=== PATIENT | female | born 1965 | race Caucasian/White ===

== ENCOUNTER 2018-06-16 16:44 | Emergency (ER) | payer SELFPAY ==
--- NOTE | 2018-06-16 18:35 | EDPHYS ---
Physician Documentation [facility] Name: Harleen Monroy Age: 52 yrs Sex: Female : 1965 Arrival Date: 06/16/2018 Time: 16:50 Bed 10 Private MD: ED Physician Eloy Garcia HPI: 06/16 18:25 This 52 yrs old Female presents to ER via Ambulatory with complaints of jmm ITCHING. 18:25 The patient's rash thought to be caused by an unknown cause. The rash is located on the jmm back and left arm. Onset: The symptoms/episode began/occurred gradually. This is a 52 year old female with a history of hypothyroidism that presents to the ED with complaints of rash to the left axillary region and left shoulder. Patient states symptoms are not relieved with OTC medication. Denies fever, vomiting, swelling of the throat, denies abdominal pain. . Historical: - Allergies: 17:05 No Known Allergies; ph - PMHx: 17:05 "Chronic night sweats"; Hypothyroidism; ph - PSHx: 17:05 Tonsillectomy; Ovarian cyst removed; D \\T\\ C; ph - Immunization history:: Adult Immunizations up to date. - Social history:: Smoking status: Patient/guardian denies using tobacco. - Ebola Screening: : No symptoms or risks identified at this time. ROS: 18:25 Constitutional: Negative for fever, chills, and weight loss, Cardiovascular: Negative jmm for chest pain, palpitations, and edema, Respiratory: Negative for shortness of breath, cough, wheezing, and pleuritic chest pain. 18:25 Skin: Positive for rash. 18:25 All other systems are negative. Exam: 18:25 Constitutional: This is a well developed, well nourished patient who is awake, alert, jmm and in no acute distress. Head/Face: atraumatic. Eyes: EOMI, no conjunctival erythema appreciated ENT: Moist Mucus Membranes Neck: Trachea midline, Supple Chest/axilla: Normal chest wall appearance and motion. Cardiovascular: Regular rate and rhythm. No edema appreciated Respiratory: Normal respirations, no respiratory distress appreciated Abdomen/GI: Non distended, soft Back: Normal ROM 18:31 Skin: mild erythema noted to the left axillary region and the left posterior shoulder. jmm 18:31 MS/ Extremity: Moves all extremities, no obvious deformities appreciated, no edema aimee noted to the lower extremities Neuro: Awake and alert, normal gait Psych: Behavior is normal, Mood is normal, Patient is cooperative and pleasant Vital Signs: 17:05 BP 164 / 83; Pulse 75; Resp 18; Temp 97.6; Pulse Ox 97% on R/A; Weight 70.76 kg; Height ph 4 ft. 11 in. (149.86 cm); 17:05 Body Mass Index 31.51 (70.76 kg, 149.86 cm) ph MDM: 18:18 Patient medically screened. [facility] 18:29 Data reviewed: vital signs, nurses notes. Counseling: I had a detailed discussion with aimee the patient and/or guardian regarding: the historical points, exam findings, and any diagnostic results supporting the discharge/admit diagnosis, the need for outpatient follow up, to return to the emergency department if symptoms worsen or persist or if there are any questions or concerns that arise at home. ED course: Patient is alert and non toxic in appearance in the ED. Symptoms appear consistent with a dermatitis. Patient prescribed oral steroids and otherwise given return precautions. Patient understood and agrees with the plan of care. . Administered Medications: No medications were administered Disposition: 06/17 09:08 Co-signature as Attending Physician, Eloy Garcia MD I agree with the assessment and isela plan of care. Disposition: 06/16/18 18:34 Discharged to Home. Impression: Rash and other nonspecific skin eruption. - Condition is Fair. - Discharge Instructions: Rash. - Prescriptions for Hydroxyzine HCl 25 mg Oral Tablet - take 1 tablet by ORAL route every 6 hours As needed; 30 tablet. Prednisone 20 mg Oral Tablet - take 3 tablet by ORAL route once daily for 5 days; 15 tablet. - Medication Reconciliation Form, Thank You Letter, Antibiotic Education, Prescription Opioid Use form. - Follow up: Private Physician; When: 2 - 3 days; Reason: Recheck today's complaints, Continuance of care, Re-evaluation by your physician. Signatures: Eloy Garcia MD MD cha Mickail, Joel, PA PA jmm Hall, Patricia, ANDRÉS RN ph Selina Flores RN RN Corrections: (The following items were deleted from the chart) 06/16 18:32 18:29 ED course: Patient is alert and non t. aimee yu 19:36 18:34 06/16/2018 18:34 Discharged to Home. Impression: Rash and other nonspecific skin hb eruption. Condition is Fair. Forms are Medication Reconciliation Form, Thank You Letter, Antibiotic Education, Prescription Opioid Use. Follow up: Private Physician; When: 2 - 3 days; Reason: Recheck today's complaints, Continuance of care, Re-evaluation by your physician. aimee
--- NOTE | 2018-06-16 18:35 | ER ---
Nurse's Notes [facility] Name: Harleen Monroy Age: 52 yrs Sex: Female : 1965 Arrival Date: 06/16/2018 Time: 16:50 Bed 10 Private MD: Diagnosis: Rash and other nonspecific skin eruption Presentation: 06/16 17:02 Presenting complaint: Patient states: Severe itching to L axilla, L chest, and L ph shoulder, no rash or hives noted, pt reports using Benadryl PO and cream w/ no relief, also reports burning to area. Transition of care: patient was not received from another setting of care. Onset of symptoms was June 16, 2018. Risk Assessment: Do you want to hurt yourself or someone else? Patient reports no desire to harm self or others. Initial Sepsis Screen: Does the patient meet any 2 criteria? No. Patient's initial sepsis screen is negative. Does the patient have a suspected source of infection? No. Patient's initial sepsis screen is negative. Care prior to arrival: None. 17:02 Method Of Arrival: Ambulatory 17:02 Acuity: BRANDEN 4 ph Historical: - Allergies: 17:05 No Known Allergies; ph - PMHx: 17:05 "Chronic night sweats"; Hypothyroidism; ph - PSHx: 17:05 Tonsillectomy; Ovarian cyst removed; D \\T\\ C; ph - Immunization history:: Adult Immunizations up to date. - Social history:: Smoking status: Patient/guardian denies using tobacco. - Ebola Screening: : No symptoms or risks identified at this time. Screenin:00 Abuse screen: Denies threats or abuse. Denies injuries from another. Nutritional hb screening: No deficits noted. Tuberculosis screening: No symptoms or risk factors identified. Fall Risk None identified. Assessment: 18:00 General: Appears in no apparent distress. Behavior is calm, cooperative. Pain: Denies hb pain. Neuro: Level of Consciousness is awake, alert, obeys commands, Oriented to person, place, time, situation. Cardiovascular: Capillary refill < 3 seconds Patient's skin is warm and dry. Respiratory: Airway is patent Respiratory effort is even, unlabored, Respiratory pattern is regular, symmetrical. GI: No signs and/or symptoms were reported involving the gastrointestinal system. : No signs and/or symptoms were reported regarding the genitourinary system. EENT: No signs and/or symptoms were reported regarding the EENT system. Derm: Skin is intact, is healthy with good turgor, Skin is pink, warm \\T\\ dry. Musculoskeletal: No signs and/or symptoms reported regarding the musculoskeletal system. 19:00 Reassessment: Patient appears in no apparent distress at this time. No changes from previously documented assessment. Patient and/or family updated on plan of care and expected duration. Pain level reassessed. Patient is alert, oriented x 3, equal unlabored respirations, skin warm/dry/pink. Vital Signs: 17:05 BP 164 / 83; Pulse 75; Resp 18; Temp 97.6; Pulse Ox 97% on R/A; Weight 70.76 kg; Height ph 4 ft. 11 in. (149.86 cm); 17:05 Body Mass Index 31.51 (70.76 kg, 149.86 cm) ph ED Course: 16:50 Patient arrived in ED. tw3 17:04 Triage completed. ph 17:06 Arm band placed on. 17:56 Richi Kelly PA is PHCP. [facility] 17:56 Eloy Garcia MD is Attending Physician. [facility] 18:00 Patient has correct armband on for positive identification. Call light in reach. 18:24 Ayanna Jolly, RN is Primary Nurse. ph 19:36 No provider procedures requiring assistance completed. Patient did not have IV access hb during this emergency room visit. Administered Medications: No medications were administered Outcome: 18:34 Discharge ordered by . [facility] 19:36 Discharged to home ambulatory. 19:36 Condition: stable 19:36 Discharge instructions given to patient, Instructed on discharge instructions, follow up and referral plans. medication usage, Demonstrated understanding of instructions, follow-up care, medications, Prescriptions given X 2. 19:36 Patient left the ED. Signatures: Richi Kelly PA PA jmm Hall, Patricia, RN RN Selina Flores RN RN Cheryl Kirk tw3
== END 2018-06-16 19:36 | disposition home or self-care (01) ==
LOC: ER 16:44
DX: R21 Rash and other nonspecific skin eruption (principal)
CPT/HCPCS: 99282

== ENCOUNTER 2021-03-06 00:59 | Emergency (ER) | payer BC, OTHER ==
[2021-03-06] MEDS ORDERED: ONDANSETRON 4 MG/2 ML VIAL ONE (01:47)
[2021-03-06] MEDS ORDERED: MORPHINE 4 MG/ML SYR ONE (01:47)
[2021-03-06] MEDS ORDERED: NA CHLORIDE 0.9% 1,000 ML ONE (01:47)
[2021-03-06 02:03] LABS: Absolute Lymphocytes (CBC) 4.3 K/uL (0.7-4.9); Basophils % 1.4 % (0-1.3); Hematocrit 39.6 % (36.0-45.0); Lymphocytes % 30.5 % (15.3-44.8); MPV 8.6 fL (7.6-11.3); RBC Red Blood Cell Count 4.32 M/uL (3.86-4.86)
[2021-03-06 02:21] LABS: ALT/SGPT 20 U/L (12-78); AST/SGOT 15 U/L (15-37); Albumin 3.7 g/dL (3.4-5.0); Alkaline Phosphatase 97 U/L (45-117); BUN Blood Urea Nitrogen 12 mg/dL (7-18); Bicarbonate 27 mmol/L (21-32); Bilirubin Direct < 0.1 mg/dL (0-0.2); Bilirubin Total 0.2 mg/dL (0.2-1.0); Glucose Level 120 mg/dL (74-106); Lipase 52 U/L (73-393); Potassium 3.7 mmol/L (3.5-5.1); Protein, Total 7.2 g/dL (6.4-8.2); Sodium Level 141 mmol/L (136-145)
[2021-03-06 02:54] LABS: Urine Blood Negative (Negative); Urine Glucose Negative (Negative); Urine Protein Negative (Negative)
[2021-03-06 03:49] LABS: Urine Bacteria <20 /HPF (<20); Urine RBC NONE SEEN /HPF (NONE SEEN); Urine Urothelial Cells <5 /HPF (NONE SEEN)
--- NOTE | 2021-03-06 04:07 | EDPHYS ---
Physician Documentation [facility] Name: Harleen Monroy Age: 55 yrs Sex: Female : 1965 Arrival Date: 03/06/2021 Time: 01:05 Bed 15 Private MD: ED Physician Bassem Mulligan HPI: 03/06 01:41 This 55 yrs old Female presents to ER via Ambulatory with complaints of Back Pain, Abd pkl Pain > 50 y/o. 01:42 The patient presents with abdominal pain in the upper abdomen. pkl 02:53 Onset: The symptoms/episode began/occurred today. The symptoms do not radiate. pkl Associated signs and symptoms: Pertinent positives: nausea, back pain. 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 - Social history:: Smoking status: Patient reports the use of cigarette tobacco products, smokes one-half pack cigarettes per day, Patient/guardian denies using alcohol, street drugs. ROS: 02:53 Eyes: Negative for injury, pain, redness, and discharge, ENT: Negative for injury, pkl pain, and discharge, Neck: Negative for injury, pain, and swelling, Cardiovascular: Negative for chest pain, palpitations, and edema, Respiratory: Negative for shortness of breath, cough, wheezing, and pleuritic chest pain. 02:53 Abdomen/GI: Positive for abdominal pain, of the right upper quadrant and left upper quadrant. 02:53 Back: Positive for pain at rest, of the lower back. 02:53 : Negative for urinary symptoms. 02:53 MS/extremity: Negative for acute changes. 02:53 Skin: Negative for rash. 02:53 Neuro: Negative for altered mental status, loss of consciousness. Exam: 02:53 Head/Face: Normocephalic, atraumatic. Eyes: Pupils equal round and reactive to light, pkl extra-ocular motions intact. Lids and lashes normal. Conjunctiva and sclera are non-icteric and not injected. Cornea within normal limits. Periorbital areas with no swelling, redness, or edema. ENT: Nares patent. No nasal discharge, no septal abnormalities noted. Tympanic membranes are normal and external auditory canals are clear. Oropharynx with no redness, swelling, or masses, exudates, or evidence of obstruction, uvula midline. Mucous membranes moist. Neck: Trachea midline, no thyromegaly or masses palpated, and no cervical lymphadenopathy. Supple, full range of motion without nuchal rigidity, or vertebral point tenderness. No Meningismus. Chest/axilla: Normal chest wall appearance and motion. Nontender with no deformity. No lesions are appreciated. Cardiovascular: Regular rate and rhythm with a normal S1 and S2. No gallops, murmurs, or rubs. Normal PMI, no JVD. No pulse deficits. Respiratory: Lungs have equal breath sounds bilaterally, clear to auscultation and percussion. No rales, rhonchi or wheezes noted. No increased work of breathing, no retractions or nasal flaring. 02:53 Abdomen/GI: Bowel sounds: normal, Palpation: soft, mild abdominal tenderness, in the right upper quadrant and left upper quadrant. 02:53 Back: pain, that is moderate, of the lower back. 02:53 : Exam negative for acute changes. 02:53 Musculoskeletal/extremity: Exam is negative for acute changes. 02:53 Skin: Exam negative for rash. 02:53 Neuro: Orientation: is normal, Mentation: is normal, Cranial nerves: grossly normal, Motor: is normal. Vital Signs: 01:14 BP 160 / 83; Pulse 73; Resp 16 S; Temp 97.5(TE); Pulse Ox 100% on R/A; Weight 70.76 kg bb (R); Height 4 ft. 11 in. (149.86 cm) (R); Pain 8/10; 02:30 BP 147 / 89; Pulse 70; Resp 18; Pulse Ox 100% on R/A; sm5 03:30 BP 144 / 75; Pulse 75; Resp 17; Pulse Ox 99% ; sm5 04:30 BP 145 / 76; Pulse 76; Resp 18; Pulse Ox 100% ; sm5 01:14 Body Mass Index 31.51 (70.76 kg, 149.86 cm) MDM: 01:20 Patient medically screened. pkl 04:01 Data reviewed: vital signs, nurses notes, lab test result(s), radiologic studies, CT pkl scan. ED course: Discussed lab and imaging studies with patient. Advised MRI lumbar spines as outpatient for her back pain. To follow up with her PCP in 2 to 3 days. Patient understood instructions. 03/06 01:32 Order name: Basic Metabolic Panel pkl 03/06 01:32 Order name: CBC with Diff; Complete Time: 03:11 pkl 03/06 01:32 Order name: Hepatic Function pkl 03/06 01:32 Order name: Lipase pkl 03/06 01:32 Order name: Basic Metabolic Panel; Complete Time: 03:11 EDMS 03/06 01:33 Order name: Liver (Hepatic) Function; Complete Time: 03:11 EDMS 03/06 01:33 Order name: Lipase; Complete Time: 03:11 EDMS 03/06 01:40 Order name: CT Abd/Pelvis - IV Contrast Only pkl 03/06 02:53 Order name: Urine Dipstick-Ancillary; Complete Time: 03:11 EDMS 03/06 02:56 Order name: Urine Microscopic Only lp1 03/06 02:56 Order name: Urine Culture lp1 03/06 02:57 Order name: Urine Microscopic Only; Complete Time: 03:59 EDMS 03/06 01:32 Order name: IV Saline Lock; Complete Time: 01:40 pkl 03/06 01:32 Order name: Labs collected and sent; Complete Time: 01:44 pkl 03/06 02:21 Order name: Urine Dipstick-Ancillary (obtain specimen); Complete Time: 02:56 sm5 Administered Medications: 01:55 Drug: NS 0.9% 1000 ml Route: IV; Rate: 125 ml/hr; Site: left antecubital; sm5 01:55 Drug: morphine 4 mg Route: IVP; Site: left antecubital; sm5 04:41 Follow up: Response: No change in condition sm5 01:55 Drug: Zofran (Ondansetron) 4 mg Route: IVP; Site: left antecubital; sm5 04:41 Follow up: Response: No adverse reaction sm5 04:30 Drug: Cipro (ciprofloxacin) 500 mg Route: PO; sm5 Disposition Summary: 03/06/21 04:06 Discharge Ordered Location: Home pkl Problem: new pkl Symptoms: have improved pkl Condition: Stable pkl Diagnosis - Abdominal pain. Urinary tract infection. Chronic back pain pkl Followup: pkl - With: Private Physician - When: 2 - 3 days - Reason: Re-evaluation by your physician Discharge Instructions: - Discharge Summary Sheet pkl Forms: - Medication Reconciliation Form pkl - Thank You Letter pkl - Antibiotic Education pkl - Prescription Opioid Use pkl Prescriptions: - Cipro 500 mg Oral Tablet - take 1 tablet by ORAL route every 12 hours for 7 days; 14 tablet; Refills: 0, pkl Product Selection Permitted Signatures: Dispatcher [employer] Bassem Rivera MD MD pkFederica Donaldson RN RN Hoa Qureshi RN RN sm5 Corrections: (The following items were deleted from the chart) 01:17 PMHx: Hypothyroidism; isauro box 01:17 PMHx: "Chronic night sweats"; isauro box
--- NOTE | 2021-03-06 04:07 | ER ---
Nurse's Notes [facility] Name: Harleen Monroy Age: 55 yrs Sex: Female : 1965 Arrival Date: 03/06/2021 Time: 01:05 Bed 15 Private MD: Diagnosis: Abdominal pain. Urinary tract infection. Chronic back pain Presentation: 03/06 01:14 Chief complaint: Patient states: she has degenerative disc disease and has pain daily bb but pain has become unbearable tonight she takes tramadol at home. The pain is radiating to her abdomen and she is feeling nauseous. Coronavirus screen: At this time, the client does not indicate any symptoms associated with coronavirus-19. Ebola Screen: No symptoms or risks identified at this time. Initial Sepsis Screen: Does the patient meet any 2 criteria? No. Patient's initial sepsis screen is negative. Does the patient have a suspected source of infection? No. Patient's initial sepsis screen is negative. Risk Assessment: Do you want to hurt yourself or someone else? Patient reports no desire to harm self or others. Onset of symptoms was March 06, 2021. 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 - Social history:: Smoking status: Patient reports the use of cigarette tobacco products, smokes one-half pack cigarettes per day, Patient/guardian denies using alcohol, street drugs. Screenin:18 Abuse screen: Denies threats or abuse. Denies injuries from another. Nutritional sm5 screening: No deficits noted. Tuberculosis screening: No symptoms or risk factors identified. Fall Risk No fall in past 12 months (0 pts). No secondary diagnosis (0 pts). IV access (20 points). Ambulatory Aid- None/Bed Rest/Nurse Assist (0 pts). Gait- Normal/Bed Rest/Wheelchair (0 pts) Mental Status- Oriented to own ability (0 pts). Total Garibay Fall Scale indicates No Risk (0-24 pts). Assessment: 01:40 General: Appears in no apparent distress. Behavior is cooperative. Pain: Complains of sm5 pain in back and abdomen. Neuro: Level of Consciousness is awake, alert, Oriented to person, place, time, situation. Cardiovascular: No deficits noted. Respiratory: No deficits noted. Airway is patent Trachea midline Respiratory effort is even, unlabored. 02:30 Reassessment: No changes from previously documented assessment. sm5 03:30 Reassessment: No changes from previously documented assessment. sm5 04:30 Reassessment: No changes from previously documented assessment. sm5 Vital Signs: 01:14 BP 160 / 83; Pulse 73; Resp 16 S; Temp 97.5(TE); Pulse Ox 100% on R/A; Weight 70.76 kg bb (R); Height 4 ft. 11 in. (149.86 cm) (R); Pain 8/10; 02:30 BP 147 / 89; Pulse 70; Resp 18; Pulse Ox 100% on R/A; sm5 03:30 BP 144 / 75; Pulse 75; Resp 17; Pulse Ox 99% ; sm5 04:30 BP 145 / 76; Pulse 76; Resp 18; Pulse Ox 100% ; sm5 01:14 Body Mass Index 31.51 (70.76 kg, 149.86 cm) bb ED Course: 01:05 Patient arrived in ED. bp1 01:17 Triage completed. bb 01:17 Arm band placed on Patient placed in an exam room, on a stretcher, on pulse oximetry. bb 01:20 Bassem Mulligan MD is Attending Physician. pkl 01:21 Hoa Infante, ANDRÉS is Primary Nurse. sm5 01:44 Lipase Sent. sm5 01:44 Liver (Hepatic) Function Sent. sm5 01:44 Basic Metabolic Panel Sent. sm5 01:44 Basic Metabolic Panel Sent. sm5 01:44 Hepatic Function Sent. sm5 01:44 Lipase Sent. sm5 01:44 CBC with Diff Sent. sm5 01:44 Inserted saline lock: 20 gauge in left antecubital area, using aseptic technique. Blood sm5 collected. 02:07 CBC with Diff Sent. sm5 02:07 Lipase Sent. sm5 02:07 Liver (Hepatic) Function Sent. sm5 02:07 Basic Metabolic Panel Sent. sm5 02:18 Patient has correct armband on for positive identification. Bed in low position. Call 5 light in reach. Side rails up X2. 02:18 No provider procedures requiring assistance completed. sm5 02:59 Urine Microscopic Only Sent. sm5 02:59 Urine Culture Sent. sm5 02:59 Urine Microscopic Only Sent. sm5 04:41 IV discontinued, intact, bleeding controlled, No redness/swelling at site. Pressure 5 dressing applied. 04:42 CT Abd/Pelvis - IV Contrast Only Sent. 5 Administered Medications: 01:55 Drug: NS 0.9% 1000 ml Route: IV; Rate: 125 ml/hr; Site: left antecubital; sm5 01:55 Drug: morphine 4 mg Route: IVP; Site: left antecubital; sm5 04:41 Follow up: Response: No change in condition sm5 01:55 Drug: Zofran (Ondansetron) 4 mg Route: IVP; Site: left antecubital; sm5 04:41 Follow up: Response: No adverse reaction 5 04:30 Drug: Cipro (ciprofloxacin) 500 mg Route: PO; 5 Outcome: 04:06 Discharge ordered by . pkl 04:41 Discharged to home ambulatory. sm5 04:41 Condition: good 04:41 Discharge instructions given to patient, Instructed on discharge instructions, follow up and referral plans. no drinking with medication, medication usage, Demonstrated understanding of instructions, follow-up care, medications, Prescriptions given X 1. 04:42 Patient left the ED. 5 Signatures: Bassem Mulligan MD MD pkl Ballard, Brenda, RN RN Wendy Thomas Sarah, ANDRÉS RN 5 Corrections: (The following items were deleted from the chart) 01:19 01:17 PMHx: Hypothyroidism; bb bb 01:17 PMHx: "Chronic night sweats"; bb bb 01:21 01:14 BP 160 / 83; Pulse 73bpm; Resp 16bpm; Spontaneous; Pulse Ox 100% RA; Temp 97.5F bb Temporal; 70.76 kg Reported; Height 5 ft. 4 in. Reported; BMI: 26.7; Pain 8/10; bb 02:17 01:40 Neuro: Level of Consciousness is awake, alert, Oriented to person, place, time, sm5 situation, sm5 02:17 02:17 Musculoskeletal: Reports pain in back [place] [id number]
[2021-03-06] MEDS ORDERED: CIPROFLOXACIN HCL 500 MG TAB ONE (04:29)
[2021-03-06 04:56] VITALS: TEMP 97.5
[2021-03-06 05:00] VITALS: BP 145/76; O2SAT 100
--- NOTE | 2021-03-06 10:54 | RAD REPORT ---
EXAM DESCRIPTION: CT - Abdomen Pelvis W Contrast - 03/06/2021 6:01 am CLINICAL HISTORY: ABD PAIN TECHNIQUE: Axial computed tomography images of the abdomen and pelvis with intravenous contrast. S agittal and coronal reformatted images were created and reviewed. This CT exam was performed using one or more of the following dose reduction techniques: automated exposure control, adjustment of t he mA and/or kV according to patient size, and/or use of iterative reconstruction technique. COMPARISON: No relevant prior studies available. FINDINGS: Lung bases: Unremarkable. No mass. No consolidation. ABDOMEN: Liver: The liver is enlarged. Gallbladder and bile ducts: Unremarkable. No calcified stones. No ductal dilation. Pancreas: Unremarkable. No mass. No ductal dilation. Spleen: Unremarkable. No splenomegaly. Adrenals: Unremarkable. No mass. Kidneys and ureters: Subcentimeter left renal cortical hypodensity which is too small to characteri ze. No follow-up imaging is necessary. No calculi. No hydronephrosis. Stomach and bowel: Duodenal diverticulum. Moderate stool. Colonic diverticula without adjacent infl ammatory change. No obstruction. No mucosal thickening. PELVIS: Appendix: Normal caliber appendix. No findings to suggest acute appendicitis. Bladder: The urinary bladder is decompressed. Reproductive: The uterus is retroverted. No adnexal mass. ABDOMEN and PELVIS: Intraperitoneal space: Unremarkable. No free air. No significant fluid collection. Bones/joints: Multilevel spondylosis. No acute fracture. No dislocation. Soft tissues: Small bilateral fat-containing inguinal hernias, right greater than left. Vasculature: Mild to moderate atherosclerotic disease. No abdominal aortic aneurysm. Lymph nodes: Unremarkable. No enlarged lymph nodes. IMPRESSION: 1. No acute abnormality identified within the abdomen and pelvis. 2. Other findings as above. Electronically signed by: Roberto Berg MD 03/06/2021 3:39 AM ASSOCIATE [employer] Due to temporary technical issues with the PACS/Fluency reporting system, reports are being signed by the in house radiologist without review as a courtesy to ensure prompt reporting. The interpreting r adiologist is fully responsible for the content of the report.
== END 2021-03-06 04:42 | disposition home or self-care (01) ==
LOC: ER 00:59
DX: N39.0 Urinary tract infection, site not specified (principal); G89.29 Other chronic pain
CPT/HCPCS: 87088; 85025; 87086; 80048; 36415; 80076; 83690; 74177; 96375; 96374; 99284; Q9967; J7030; J2405; 81003; 81015

== ENCOUNTER 2022-01-21 08:54 | Emergency (ER) | payer BC, OTHER ==
[2022-01-21 09:54] LABS: Urine Blood Negative (Negative); Urine Glucose Negative (Negative); Urine Protein Negative (Negative); Urine pH 5.5 (5.0-7.0)
[2022-01-21] MEDS ORDERED: NA CHLORIDE 0.9% 1,000 ML ONE (10:15)
[2022-01-21] MEDS ORDERED: MORPHINE 4 MG/ML SYR ONE (10:15)
[2022-01-21] MEDS ORDERED: ONDANSETRON 4 MG/2 ML VIAL ONE (10:15)
[2022-01-21 10:27] LABS: Urine Bacteria <20 /HPF (<20); Urine Crystals Unidentified Few /HPF (None Seen); Urine Mucus Slight /HPF (None Seen); Urine RBC <5 /HPF (None Seen)
[2022-01-21 10:59] LABS: Hematocrit 41.8 % (36.0-45.0); MCV 92.5 fL (80-100); MPV 8.6 fL (7.6-11.3); RBC Red Blood Cell Count 4.52 M/uL (3.86-4.86)
[2022-01-21 11:20] LABS: Albumin 3.6 g/dL (3.4-5.0); Bilirubin Total 0.6 mg/dL (0.2-1.0); Potassium 3.8 mmol/L (3.5-5.1); Protein, Total 7.3 g/dL (6.4-8.2)
--- NOTE | 2022-01-21 11:52 | RAD REPORT ---
EXAM DESCRIPTION: CT - Abdomen Pelvis W Contrast - 01/21/2022 11:35 am CLINICAL HISTORY: Epigastric pain, history of recent treatment for urinary tract infection COMPARISON: Abdomen Pelvis W Contrast dated 03/06/2021 TECHNIQUE: Biphasic, helical CT imaging of the abdomen and pelvis was performed following 100 ml non -ionic IV contrast. No oral contrast given. All CT scans are performed using dose optimization technique as appropriate and may include automated exposure control or mA/KV adjustment according to patient size. FINDINGS: No suspicious findings in the lung bases. The liver, spleen, and pancreas show no suspicious findings. Gallbladder and biliary tree are also wi thout suspicious finding. Symmetric renal function is seen with no hydronephrosis or suspicious renal mass. No pyelonephritis o r acute parenchymal process. No bladder abnormalities. No adrenal abnormalities. Uterus and ovaries s how no suspicious findings. No stomach or small bowel abnormality. There is no appendicitis. There is mild to moderate degree of circumferential wall thickening and edema spanning the entirety of the colon from cecum to rectum. No one area of focal mass lesions seen and there is no colon dilatation. Trace amount of stranding seen in the adjacent fatty tissue. No free air, free fluid or pneumatosis. No abscess or extraluminal co llection identified. No hernia, mass or bulky lymphadenopathy. No suspicious bony findings. IMPRESSION: Mild to moderate pancolitis pattern which could be a primary infectious/inflammatory pro cess. Pseudomembranous colitis is a consideration given the provided history of recent antibiotic usage. C orrelation is needed with medication used.
--- NOTE | 2022-01-21 16:25 | EDPHYS ---
Physician Documentation [facility] Name: Harleen Monroy Age: 56 yrs Sex: Female : 1965 Arrival Date: 01/21/2022 Time: 08:57 Bed 13 Private MD: IDANIA Physician Eloy Garcia HPI: 01/21 09:35 This 56 yrs old Female presents to ER via Ambulatory with complaints of Abdominal Pain. pm1 09:35 The patient presents with abdominal pain in the epigastric area. Onset: The pm1 symptoms/episode began/occurred 3 day(s) ago. The symptoms do not radiate. Associated signs and symptoms: Pertinent positives: diarrhea, Pertinent negatives: nausea and vomiting, chest pain, shortness of breath. The symptoms are described as crampy. Modifying factors: The symptoms are alleviated by nothing, the symptoms are aggravated by UTI per patient. When her UTIs get worse she gets epigastric pain. Severity of pain: in the emergency department the pain is actually worse. The patient has experienced similar episodes in the past, a few times. The patient has been recently seen by a physician: patient with UTI that has not improved. Completed Bactrim last week. 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 - Social history:: Smoking status: Patient reports the use of cigarette tobacco products, smokes one-half pack cigarettes per day. ROS: 09:35 Constitutional: Negative for fever, chills, and weight loss, Cardiovascular: Negative pm1 for chest pain, palpitations, and edema, Respiratory: Negative for shortness of breath, cough, wheezing, and pleuritic chest pain. 09:35 Back: Negative for injury and pain, : Negative for injury, bleeding, discharge, and swelling, MS/Extremity: Negative for injury and deformity, Skin: Negative for injury, rash, and discoloration, Neuro: Negative for headache, weakness, numbness, tingling, and seizure. 09:35 Abdomen/GI: Positive for abdominal pain, diarrhea, of the epigastric area, Negative for nausea and vomiting. 09:35 All other systems are negative. Exam: 09:35 Constitutional: This is a well developed, well nourished patient who is awake, alert, pm1 and in no acute distress. Head/Face: Normocephalic, atraumatic. 09:35 Back: No spinal tenderness. No costovertebral tenderness. Full range of motion. Skin: Warm, dry with normal turgor. Normal color with no rashes, no lesions, and no evidence of cellulitis. MS/ Extremity: Pulses equal, no cyanosis. Neurovascular intact. Full, normal range of motion. 09:35 Eyes: Exam is negative for acute changes, Periorbital structures: no acute changes, Conjunctiva: no acute changes. 09:35 ENT: External ear(s): no acute changes, Ear canal(s): no acute changes, TM's: no acute changes, Mouth: no acute changes, Lips: normal, moist, Oral mucosa: normal, pink and intact, moist. 09:35 Cardiovascular: Exam negative for acute changes, Rate: normal, Rhythm: regular, Pulses: no pulse deficits are appreciated. 09:35 Respiratory: Exam negative for acute changes, respiratory distress, shortness of breath. 09:35 Abdomen/GI: Inspection: abdomen appears normal, Palpation: soft, in all quadrants, moderate abdominal tenderness, in the epigastric area. 09:35 Neuro: Exam negative for acute changes, Orientation: is normal, Mentation: is normal, Motor: is normal, moves all fours. Vital Signs: 09:26 BP 161 / 80; Pulse 86; Resp 16; Temp 98.4(TE); Pulse Ox 99% on R/A; Weight 70.76 kg; ss Height 4 ft. 11 in. (149.86 cm); Pain 7/10; 10:28 BP 137 / 64; Pulse 79; Resp 18; Pulse Ox 98% ; Pain 8/10; db 11:00 BP 110 / 63; Pulse 78; Resp 16; Pulse Ox 100% ; db 14:30 BP 141 / 84; Pulse 84; Resp 18; Pulse Ox 95% ; db 16:40 BP 138 / 80; Pulse 77; Resp 16; Temp 98.2(O); Pulse Ox 97% ; db 09:26 Body Mass Index 31.51 (70.76 kg, 149.86 cm) MDM: 09:35 Patient medically screened. pm1 16:11 Data reviewed: vital signs. Data interpreted: Pulse oximetry: on room air is 95 %. pm1 Interpretation: normal. 16:13 ED course: Informed by lab that the C.difficile result will be resulted tomorrow. pm1 16:23 Counseling: I had a detailed discussion with the patient and/or guardian regarding: the pm1 historical points, exam findings, and any diagnostic results supporting the discharge/admit diagnosis, lab results, the need for outpatient follow up, to return to the emergency department if symptoms worsen or persist or if there are any questions or concerns that arise at home. 01/21 09:35 Order name: CBC with Diff; Complete Time: 11:09 pm1 01/21 09:35 Order name: CMP; Complete Time: 11:20 pm1 01/21 09:35 Order name: Lipase; Complete Time: 11:20 pm1 01/21 09:35 Order name: Urine Microscopic Only; Complete Time: 10:33 pm1 01/21 09:54 Order name: Urine Dipstick-Ancillary; Complete Time: 09:56 EDMS 01/21 12:05 Order name: Fecal Leukocyte Stain pm1 01/21 09:35 Order name: CT Abd/Pelvis - IV Contrast Only; Complete Time: 11:55 pm1 01/21 09:35 Order name: IV Saline Lock; Complete Time: 10:32 pm1 01/21 12:05 Order name: Ova And Parasites pm1 01/21 12:05 Order name: Stool Culture pm1 01/21 12:05 Order name: C.difficile pm1 01/21 09:35 Order name: Labs collected and sent; Complete Time: 10:32 pm1 01/21 09:35 Order name: Urine Dipstick-Ancillary (obtain specimen); Complete Time: 10:32 pm1 Administered Medications: 10:22 Drug: NS 0.9% 1000 ml Route: IV; Rate: 1 bolus; Site: left antecubital; db 11:45 Follow up: Response: No adverse reaction; IV Status: Completed infusion; IV Intake: db 1000ml 10:25 Drug: Zofran (Ondansetron) 4 mg Route: IVP; Site: left antecubital; db 11:16 Follow up: Response: No adverse reaction db 10:25 Drug: morphine 4 mg Route: IVP; Infused Over: 4 mins; Site: left antecubital; db 11:16 Follow up: Response: No adverse reaction db Disposition Summary: 01/21/22 16:24 Discharge Ordered Location: Home pm1 Problem: new pm1 Symptoms: have improved pm1 Condition: Stable pm1 Diagnosis - Abdominal pain, unspecified pm1 - Diarrhea, unspecified pm1 Followup: pm1 - With: Emergency Department - When: As needed - Reason: Worsening of condition Followup: pm1 - With: Private Physician - When: 2 - 3 days - Reason: Recheck today's complaints, Continuance of care, Re-evaluation by your physician Discharge Instructions: - Discharge Summary Sheet pm1 - Abdominal Pain, Adult pm1 - Food Choices to Help Relieve Diarrhea, Adult pm1 - Diarrhea, Adult pm1 - Clear Liquid Diet, Adult pm1 Forms: - Medication Reconciliation Form pm1 - Thank You Letter pm1 - Antibiotic Education pm1 - Prescription Opioid Use pm1 Prescriptions: - dicyclomine 20 mg Oral Tablet - take 1 tablet by ORAL route every 6 hours As needed; 20 tablet; Refills: 0, pm1 Product Selection Permitted Signatures: Dispatcher [employer] EDMS Chrissy Mckeon, RN RN ss Kike Becker, JERZY CONTINUITY PERSON pm1 Luisana Ballard, RN RN db
--- NOTE | 2022-01-21 16:25 | ER ---
Nurse's Notes [facility] [place] Name: Harleen Monroy Age: 56 yrs Sex: Female : 1965 Arrival Date: 01/21/2022 Time: 08:57 Bed 13 Private MD: Diagnosis: Abdominal pain, unspecified;Diarrhea, unspecified Presentation: 01/21 09:26 Chief complaint: Patient states: dx and treated for UTI at the beginning of the month, ss was feeling better, but yesterday she woke up with a stomach ache and diarrhea. Pt is concerned because the diarrhea hasn't yet stopped and she now has a decreased appetite and feels like her UTI may be coming back. Coronavirus screen: Client denies travel out of the [place] in the last 14 days. Ebola Screen: Patient denies exposure to infectious person. Patient denies travel to an Ebola-affected area in the 21 days before illness onset. Initial Sepsis Screen: Does the patient meet any 2 criteria? No. Patient's initial sepsis screen is negative. Does the patient have a suspected source of infection? No. Patient's initial sepsis screen is negative. Risk Assessment: Do you want to hurt yourself or someone else? Patient reports no desire to harm self or others. Onset of symptoms was January 20, 2022. 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 - Social history:: Smoking status: Patient reports the use of cigarette tobacco products, smokes one-half pack cigarettes per day. Screenin:00 Abuse screen: Denies threats or abuse. Denies injuries from another. Nutritional db screening: No deficits noted. Tuberculosis screening: No symptoms or risk factors identified. Fall Risk None identified. No fall in past 12 months (0 pts). No secondary diagnosis (0 pts). IV access (20 points). Ambulatory Aid- None/Bed Rest/Nurse Assist (0 pts). Gait- Normal/Bed Rest/Wheelchair (0 pts) Mental Status- Oriented to own ability (0 pts). Total Garibay Fall Scale indicates No Risk (0-24 pts). Assessment: 10:00 Reassessment: Patient appears in no apparent distress at this time. Patient and/or db family updated on plan of care and expected duration. Pain level reassessed. Patient is alert, oriented x 3, equal unlabored respirations, skin warm/dry/pink. 10:00 General: Appears in no apparent distress. uncomfortable, Behavior is calm, cooperative, db appropriate for age, quiet. Pain: Complains of pain in middle upper abdomen. GI: Bowel sounds present X 4 quads. Abd is soft Reports diarrhea, nausea. : No deficits noted. : No deficits noted. Reports vaginal itching. EENT: No deficits noted. Derm: No deficits noted. 11:00 Reassessment: Patient appears in no apparent distress at this time. No changes from db previously documented assessment. Patient and/or family updated on plan of care and expected duration. Pain level reassessed. Patient is alert, oriented x 3, equal unlabored respirations, skin warm/dry/pink. Patient states feeling better. 12:00 Reassessment: Patient appears in no apparent distress at this time. No changes from db previously documented assessment. Patient and/or family updated on plan of care and expected duration. Pain level reassessed. Patient is alert, oriented x 3, equal unlabored respirations, skin warm/dry/pink. 13:00 Reassessment: Patient appears in no apparent distress at this time. No changes from db previously documented assessment. Patient and/or family updated on plan of care and expected duration. Pain level reassessed. Patient is alert, oriented x 3, equal unlabored respirations, skin warm/dry/pink. 14:00 Reassessment: Patient appears in no apparent distress at this time. No changes from db previously documented assessment. Patient and/or family updated on plan of care and expected duration. Pain level reassessed. Patient is alert, oriented x 3, equal unlabored respirations, skin warm/dry/pink. 15:00 Reassessment: Patient appears in no apparent distress at this time. No changes from db previously documented assessment. Patient and/or family updated on plan of care and expected duration. Pain level reassessed. Patient is alert, oriented x 3, equal unlabored respirations, skin warm/dry/pink. 16:00 Reassessment: Patient appears in no apparent distress at this time. No changes from db previously documented assessment. Patient and/or family updated on plan of care and expected duration. Pain level reassessed. Patient is alert, oriented x 3, equal unlabored respirations, skin warm/dry/pink. Vital Signs: 09:26 BP 161 / 80; Pulse 86; Resp 16; Temp 98.4(TE); Pulse Ox 99% on R/A; Weight 70.76 kg; ss Height 4 ft. 11 in. (149.86 cm); Pain 7/10; 10:28 BP 137 / 64; Pulse 79; Resp 18; Pulse Ox 98% ; Pain 8/10; db 11:00 BP 110 / 63; Pulse 78; Resp 16; Pulse Ox 100% ; db 14:30 BP 141 / 84; Pulse 84; Resp 18; Pulse Ox 95% ; db 16:40 BP 138 / 80; Pulse 77; Resp 16; Temp 98.2(O); Pulse Ox 97% ; db 09:26 Body Mass Index 31.51 (70.76 kg, 149.86 cm) ED Course: 08:57 Patient arrived in ED. as 09:08 Kike Becker NP is PHCP. pm1 09:08 Eloy Garcia MD is Attending Physician. pm1 09:29 Triage completed. ss 09:29 Arm band placed on. ss 09:52 Luisana Ballard, RN is Primary Nurse. db 10:22 Inserted saline lock: 20 gauge in left antecubital area, using aseptic technique. Blood db collected. 11:00 Patient has correct armband on for positive identification. Bed in low position. Call db light in reach. Side rails up X 1. Pulse ox on. NIBP on. Warm blanket given. 11:36 CT Abd/Pelvis - IV Contrast Only In Process Unspecified. EDMS 16:44 No provider procedures requiring assistance completed. IV discontinued, intact, db bleeding controlled, No redness/swelling at site. Administered Medications: 10:22 Drug: NS 0.9% 1000 ml Route: IV; Rate: 1 bolus; Site: left antecubital; db 11:45 Follow up: Response: No adverse reaction; IV Status: Completed infusion; IV Intake: db 1000ml 10:25 Drug: Zofran (Ondansetron) 4 mg Route: IVP; Site: left antecubital; db 11:16 Follow up: Response: No adverse reaction db 10:25 Drug: morphine 4 mg Route: IVP; Infused Over: 4 mins; Site: left antecubital; db 11:16 Follow up: Response: No adverse reaction db Medication: 11:00 VIS not applicable for this client. db Intake: 11:45 IV: 1000ml; Total: 1000ml. db Outcome: 16:24 Discharge ordered by MD. pm1 16:43 Discharged to home ambulatory. db 16:43 Condition: stable 16:43 Discharge instructions given to patient, Instructed on discharge instructions, follow up and referral plans. Demonstrated understanding of Prescriptions given X 1. 16:47 Patient left the ED. db Signatures: Dispatcher [employer] EDYanet Sweeney Shelby, ANDRÉS RN ss Kike Becker, ELECTRICAL CONTROLS TECHNICIAN ELECTRICAL CONTROLS TECHNICIAN pm1 Luisana Ballard RN RN db
[2022-01-21 17:07] VITALS: BP 138/80; TEMP 98.2; O2SAT 97
[2022-01-22 13:15] LABS: C.diff Antigen/Toxin Ag neg : Tox neg (NEG : NEG)
== END 2022-01-21 16:47 | disposition home or self-care (01) ==
LOC: ER 08:54
DX: R10.13 Epigastric pain (principal); R19.7 Diarrhea, unspecified; I10 Essential (primary) hypertension; F17.210 Nicotine dependence, cigarettes, uncomplicated
CPT/HCPCS: 96361; 87045; 85025; 36415; 89055; 87177; 87046; 87209; 87324; 83690; 80053; 74177; 96375; 96374; 99284; Q9967; J7030; J2405; 81003; 81015